=== PATIENT | female | born 1950 | race African-American/Black ===

== ENCOUNTER 2020-01-01 06:01 | Inpatient (IN) ==
[~2020-01-01 06:01] MED LIST: VANCOMYCIN INJ 1,000 MG in SODIUM CHLORIDE 0.9% 250 ML IV ONE
[2020-01-01 06:56] LABS: INR 1.2; PT Patient Result 12.7 SECS (9.8-11.9); Partial Thromboplastin Time 28.4 SECS (23.9-33.8)
[2020-01-01] MEDS ORDERED: ceFAZolin 1,000 MG in SYRINGE 1 EACH IV ONE (07:00)
[2020-01-01] MEDS ORDERED: ceFAZolin 1,000 MG VIAL ONE (07:17)
[2020-01-01] MEDS ORDERED: VANCOMYCIN 1,000 MG VIAL ONE (07:17)
[2020-01-01] MEDS ORDERED: LACTATED RINGERS 1,000 ML IV SCH (08:00)
[2020-01-01] MEDS ORDERED: LIDOCAINE 1% 5 ML VIAL ONE (08:08)
[2020-01-01] MEDS ORDERED: DEXMEDETOMIDINE 200 MCG/2 ML VIAL ONE (08:08)
[2020-01-01] MEDS ORDERED: ROPIVACAINE 0.5% 30 ML VIAL ONE (08:08)
[2020-01-01] MEDS ORDERED: DEXAMETHASONE 4 MG/1 ML VIAL ONE (08:08)
[2020-01-01] MEDS ORDERED: TEMAZEPAM 7.5 MG CAPSULE PO PRN (10:51)
[2020-01-01] MEDS ORDERED: MORPHINE 4 MG/1 ML VIAL IV PRN ×2 (10:51→12:06)
[2020-01-01] MEDS ORDERED: diphenhydrAMINE CAP 25 MG CAPSULE PO PRN (10:51)
[2020-01-01] MEDS ORDERED: PROMETHAZINE 25 MG/1 ML VIAL IM PRN (10:51)
[2020-01-01] MEDS ORDERED: ONDANSETRON 4 MG/2 ML VIAL IV PRN (10:51)
[2020-01-01] MEDS ORDERED: BISACODYL 10 MG SUPP RECTAL PRN (10:51)
[2020-01-01] MEDS ORDERED: LACTULOSE 20 GM/30 ML UDCUP PO PRN (10:51)
[2020-01-01] MEDS ORDERED: propofoL 200 MG/20 ML VIAL IV ONE (11:11)
[2020-01-01] MEDS ORDERED: BUPIVACAINE SPINAL 0.75% 2 ML AMP SPINAL ONE (11:11)
[2020-01-01] MEDS ORDERED: MIDAZOLAM 2 MG/2 ML VIAL ONE (11:11)
[2020-01-01] MEDS ORDERED: ONDANSETRON 4 MG/2 ML VIAL ONE (11:11)
[2020-01-01] MEDS ORDERED: PHENYLEPHRINE 1 MG/10 ML SYRINGE IV ONE (11:12)
[2020-01-01] MEDS ORDERED: GLYCOPYRROLATE 0.4 MG/2 ML VIAL ONE (11:12)
[2020-01-01] MEDS ORDERED: TRANEXAMIC ACID 1,000 MG/10 ML VIAL ONE (11:12)
[2020-01-01] MEDS: ceFAZolin 2,000 MG in PREMIX 1 EACH IV SCH ×2 (14:11→22:03)
[2020-01-01] MEDS: WARFARIN 5 MG TABLET PO SCH (18:24)
[2020-01-01] MEDS: LATANOPROST 0.005% OPH SOLN 2.5 ML BOTTLE BOTH EYES SCH (21:00)
[2020-01-01] MEDS: BRIMONIDINE/TIMOLOL OPH SOLN 5 ML BOTTLE BOTH EYES SCH (21:00)
[2020-01-01] MEDS: DOCUSATE SODIUM 100 MG CAPSULE PO SCH (22:02)
[2020-01-02 05:51] LABS: Basophils # 0.1 10*3/uL (0.0-0.2); Basophils % 0.4 % (0.0-0.8); Eosinophils % 0.2 % (0.00-10.9); Hematocrit 33.9 VOL% (35.7-47.0); Hemoglobin 10.8 GM/DL (12.0-16.0); Immature Granulocytes % 0.5 %; Immature Granulocytes Absolute 0.07 #; Lymphocytes # 2.7 10*3/uL (1.4-4.0); Lymphocytes % 20.1 % (21.3-54.2); Mean Corpuscular HGB Conc 31.9 GM/DL (32-36); Mean Corpuscular Volume 87.6 FL (87-102); Mean Platelet Volume 10.8 FL (9.6-12.0); Monocytes % 13.1 % (1.7-12.7); Neutrophils % 65.7 % (38.7-73.9); Platelet Count 217 T/CUMM (130-400); Red Blood Count 3.87 MC/CUMM (3.8-5.5); Red Cell Distribution Width 14.9 % (9.3-17.3); White Blood Count 13.4 T/CUMM (4-12)
[2020-01-02 06:02] LABS: INR 1.1; PT Patient Result 12.2 SECS (9.8-11.9)
[2020-01-02 06:23] LABS: Osmolality,Calculated 277.5 MOS/KG (273-304)
[2020-01-02] MEDS: CALCIUM (CARBONATE)/VITAMIN D 600 MG-400 UNIT TABLET PO SCH (09:14)
[2020-01-02] MEDS: ATORVASTATIN 20 MG TABLET PO SCH (09:14)
[2020-01-02] MEDS: METOPROLOL SUCCINATE XL 100 MG TABLET PO SCH (09:16)
[2020-01-02] MEDS: amLODIPine 5 MG TABLET PO SCH (09:18)
[2020-01-02] MEDS: OLMESARTAN 20 MG TABLET PO SCH (09:18)
[2020-01-02] MEDS: PANTOPRAZOLE 40 MG TABLET PO SCH (09:18)
[2020-01-02] MEDS: BRIMONIDINE/TIMOLOL OPH SOLN 5 ML BOTTLE BOTH EYES SCH ×2 (09:26→21:30)
[2020-01-02] MEDS: hydroCHLOROthiazide 12.5 MG CAPSULE PO SCH (09:26)
[2020-01-02] MEDS: DOCUSATE SODIUM 100 MG CAPSULE PO SCH ×2 (09:34→21:30)
[2020-01-02] MEDS: WARFARIN 7.5 MG TABLET PO SCH (18:14)
[2020-01-02] MEDS: LATANOPROST 0.005% OPH SOLN 2.5 ML BOTTLE BOTH EYES SCH (21:30)
[2020-01-03] MEDS: METOPROLOL SUCCINATE XL 100 MG TABLET PO SCH (08:59)
[2020-01-03] MEDS: ATORVASTATIN 20 MG TABLET PO SCH (08:59)
[2020-01-03] MEDS: CALCIUM (CARBONATE)/VITAMIN D 600 MG-400 UNIT TABLET PO SCH (09:00)
[2020-01-03] MEDS: OLMESARTAN 20 MG TABLET PO SCH (09:00)
[2020-01-03] MEDS: DOCUSATE SODIUM 100 MG CAPSULE PO SCH ×2 (09:01→21:34)
[2020-01-03] MEDS: amLODIPine 5 MG TABLET PO SCH (09:01)
[2020-01-03] MEDS: hydroCHLOROthiazide 12.5 MG CAPSULE PO SCH (09:01)
[2020-01-03] MEDS: PANTOPRAZOLE 40 MG TABLET PO SCH (09:02)
[2020-01-03] MEDS: BRIMONIDINE/TIMOLOL OPH SOLN 5 ML BOTTLE BOTH EYES SCH ×2 (09:09→21:33)
[2020-01-03] MEDS: WARFARIN 5 MG TABLET PO SCH (17:39)
[2020-01-03] MEDS: LATANOPROST 0.005% OPH SOLN 2.5 ML BOTTLE BOTH EYES SCH (21:33)
[2020-01-03] MEDS: MAGNESIUM HYDROXIDE SUSP 30 ML UDCUP PO PRN (21:38)
[2020-01-04] MEDS: ATORVASTATIN 20 MG TABLET PO SCH (09:19)
[2020-01-04] MEDS: OLMESARTAN 20 MG TABLET PO SCH (09:20)
[2020-01-04] MEDS: hydroCHLOROthiazide 12.5 MG CAPSULE PO SCH (09:20)
[2020-01-04] MEDS: CALCIUM (CARBONATE)/VITAMIN D 600 MG-400 UNIT TABLET PO SCH (09:20)
[2020-01-04] MEDS: amLODIPine 5 MG TABLET PO SCH (09:20)
[2020-01-04] MEDS: PANTOPRAZOLE 40 MG TABLET PO SCH (09:21)
[2020-01-04] MEDS: METOPROLOL SUCCINATE XL 100 MG TABLET PO SCH (09:21)
[2020-01-04] MEDS ORDERED: TUBERCULIN SKIN TEST 0.1 ML SYRINGE INTRADERM ONE (09:31)
[2020-01-04] MEDS: BRIMONIDINE/TIMOLOL OPH SOLN 5 ML BOTTLE BOTH EYES SCH ×2 (10:23→20:57)
[2020-01-04] MEDS: DOCUSATE SODIUM 100 MG CAPSULE PO SCH ×2 (10:23→20:55)
[2020-01-04] MEDS: MAGNESIUM HYDROXIDE SUSP 30 ML UDCUP PO PRN ×2 (11:13→18:39)
[2020-01-04] MEDS ORDERED: INFLUENZA VIRUS VACCINE 0.5 ML SYRINGE IM ONE (11:15)
[2020-01-04] MEDS: WARFARIN 7.5 MG TABLET PO SCH (18:39)
[2020-01-04] MEDS: LATANOPROST 0.005% OPH SOLN 2.5 ML BOTTLE BOTH EYES SCH (20:57)
[2020-01-05] MEDS: ATORVASTATIN 20 MG TABLET PO SCH (10:54)
[2020-01-05] MEDS: hydroCHLOROthiazide 12.5 MG CAPSULE PO SCH (10:54)
[2020-01-05] MEDS: CALCIUM (CARBONATE)/VITAMIN D 600 MG-400 UNIT TABLET PO SCH (10:54)
[2020-01-05] MEDS: OLMESARTAN 20 MG TABLET PO SCH (10:54)
[2020-01-05] MEDS: amLODIPine 5 MG TABLET PO SCH (10:55)
[2020-01-05] MEDS: PANTOPRAZOLE 40 MG TABLET PO SCH (10:55)
[2020-01-05] MEDS: METOPROLOL SUCCINATE XL 100 MG TABLET PO SCH (10:55)
[2020-01-05] MEDS: BRIMONIDINE/TIMOLOL OPH SOLN 5 ML BOTTLE BOTH EYES SCH (10:56)
[2020-01-05] MEDS: DOCUSATE SODIUM 100 MG CAPSULE PO SCH ×2 (11:03→11:31)
[2020-01-05 15:59] VITALS: BP 110/52
== END 2020-01-05 15:25 | disposition swing bed (61) | DRG 470 ==
LOC: N.OR 06:01 → N.SDSINP 06:01 → N.3E 11:55
PROVIDERS: ADMIT Orthopaedic Surgery; ATTEND Orthopaedic Surgery